=== PATIENT | male | born 1975 | race African-American/Black ===

== ENCOUNTER 2021-01-06 20:26 | Emergency (ER) | payer MEDICAID, MEDICARE, OTHER ==
[~2021-01-06] VITALS: Ht 177.8 cm; Wt 79.4 kg
--- NOTE | 2021-01-06 20:55 | NUR ---
PATIENT AZALIA Rubi FROM A PARKING LOT STATED, "I HAD SEZURE, MY EYES ARE BROWN, I HAVEN'T EATEN". PATIENT IS A/O X 2-3, RR EVEN AND UNLABORED NO SIGNS OF SOB NOTED. PATIENT CONNCETED TO [employer] MONITOR AND POX.
[2021-01-06 21:19] LABS: BASOPHILS % (AUTO) 0.6 % (0.0-2.0); EOSINOPHILS % (AUTO) 0.7 % (0.0-6.0); HEMATOCRIT 39 % (39-51); HEMOGLOBIN 12.8 g/dL (13.5-17.5); LYMPHOCYTES # (AUTO) 1.5 K/uL (0.8-4.8); LYMPHOCYTES % (AUTO) 21.7 % (20.0-44.0); MEAN CORPUSCULAR HGB CONC 33 g/dl (31.0-36.0); MEAN CORPUSCULAR VOLUME 82 fL (80-96); MONOCYTES # (AUTO) 0.7 K/uL (0.1-1.30); MONOCYTES % (AUTO) 9.8 % (2.0-12.0); NEUTROPHILS # (AUTO) 4.7 K/uL (1.8-8.9); NEUTROPHILS % (AUTO) 67.2 % (43.0-81.0); PLATELET COUNT (AUTO) 333 K/uL (150-450); RED BLOOD CELL COUNT(AUTO) 4.78 MIL/uL (4.5-6.0)
[2021-01-06 21:26] LABS: MAGNESIUM 1.9 mg/dL (1.8-2.4)
[2021-01-06] MEDS: IV NS 0.9% 1,000 ML BAG IV ONE (21:28)
[2021-01-06 21:42] LABS: CALCIUM, SERUM 8.8 mg/dL (8.5-10.1); CARBON DIOXIDE 25 mmol/L (21-32); CHLORIDE 99 mmol/L (98-107); CREATININE 0.9 mg/dL (0.6-1.3); POTASSIUM 3.2 mmol/L (3.5-5.1); SODIUM SERUM 136 mmol/L (136-145); UREA NITROGEN, BLOOD 9 mg/dL (7-18)
[2021-01-06 21:43] LABS: ALANINE AMINOTRANSFERASE 74 U/L (12-78); ALBUMIN 3.7 g/dL (3.4-5.0); ALKALINE PHOSPHATASE 83 U/L (46-116); ASPARTATE AMINOTRANSFERASE 19 U/L (15-37); BILIRUBIN,DIRECT 0.2 mg/dL (0.0-0.2); BILIRUBIN,TOTAL 0.7 mg/dL (0.2-1.0); TOTAL PROTEIN, SERUM 7.6 g/dL (6.4-8.2)
[2021-01-06 21:44] LABS: ACETAMINOPHEN < 2 ug/ml (10-30); ALCOHOL, BLOOD < 3 mg/dL (0-0); GLUCOSE 367 mg/dL (74-106)
[2021-01-06] MEDS ORDERED: LEVETIRACETAM (500MG) 500 MG/5 ML VIAL IV ONE (21:45)
[2021-01-06] MEDS: LEVETIRACETAM (500MG) 1,000 MG in IV NS 0.9% 100 ML IV SCH (21:58)
[2021-01-06 22:05] LABS: ABG BASE EXCESS -1.1 mmol/L; ABG OXYGEN SATURATION 44.9 % (92.0-98.5); ABG PCO2 45.9 mmHg (35.0-45.0); MetHb 0.5 % (0.0-1.5); O2Hb 43.8 % (94.0-97.0); SITE, ABG Other; VENT MODE, BG ROOM AIR
[2021-01-06 22:12] LABS: BILIRUBIN,URINE Negative (NEGATIVE); COLOR,URINE YELLOW (YELLOW); LEUKOCYTE ESTERASE ,URINE Negative (NEGATIVE); NITRITE, URINE Negative (NEGATIVE); PH,URINE 5.5 (5.0-8.0); PROTEIN,URINE Negative (NEGATIVE); UGLUCOSE 500 MG/DL mg/dL (NEGATIVE); UROBILINOGEN,URINE 0.2 EU/dL (0.2)
--- NOTE | 2021-01-06 22:20 | NUR ---
Patient eloped from facility. ER MD notified.
[2021-01-06 22:43] VITALS: BP 134/75
== END 2021-01-06 22:44 | disposition left against medical advice (07) ==
LOC: ER 20:29 → EDBD 20:29 → ER 22:44
DX: R41.0 Disorientation, unspecified (principal); R56.9 Unspecified convulsions; R73.9 Hyperglycemia, unspecified; F17.200 Nicotine dependence, unspecified, uncomplicated
CPT/HCPCS: 36415; 36600 ×2; 71045; 80048; 80076; 80143; 80307; 80320; 81003; 82803; 82962; 83690; 83735; 85025; 93005; 96365; 99285; J1953 ×2; J7030 ×2; G0480